=== PATIENT | male | born 1965 | race Caucasian/White ===

== ENCOUNTER 2020-12-15 10:20 | Inpatient (IN) ==
[2020-12-15 11:56] LABS: Red Cell Distribution Width 12.2 % (11.5-14.5)
[2020-12-15 11:57] LABS: Hematocrit 37.6 % (37.5-50.1); Hemoglobin 12.2 g/dL (12.9-16.9); Immature Platelets 3.6 % (1.1-6.1); Mean Corpuscular HGB Conc 32.4 g/dL (31.6-35.5); Mean Corpuscular Hemoglobin 30.3 pg (28.0-33.3); Mean Corpuscular Volume 93.5 fL (83.0-100.0); Mean Platelet Volume 9.9 fL (9.4-12.4); Platelet Count 105 K/mcL (140-400); Red Blood Count 4.02 M/mcL (4.19-5.50); White Blood Count 7.5 K/mcL (4.3-11.1)
[2020-12-15 12:08] LABS: Alanine Aminotransferase 11 Units/L (7-52); Albumin 3.9 g/dL (3.5-5.7); Albumin/Globulin Ratio 1.6 (1.1-2.2); Alkaline Phosphatase 97 Units/L (34-104); Aspartate Amino Transferase 20 Units/L (13-39); BUN/Creatinine Ratio 28 (6-26); Bilirubin,Total 1.4 mg/dL (0.3-1.0); Blood Urea Nitrogen 25 mg/dL (6-20); C-Reactive Protein < 5 mg/L (Less than 10); Calcium 8.8 mg/dL (8.6-10.3); Carbon Dioxide 22 mEq/L (23-29); Chloride 110 mEq/L (98-107); Globulin 2.5 g/dL (2.4-3.5); Glucose 145 mg/dL (70-105); Osmolality,Calculated 295 (280-300); Potassium 4.6 mEq/L (3.5-5.1); Sodium 139 mEq/L (136-145); Total Protein 6.4 g/dL (6.4-8.9); eGFR For African Americans > 60 (> 60); eGFR For Non-African Americans > 60 (> 60)
[2020-12-15 12:12] LABS: INR 1.1
[2020-12-15 12:15] LABS: Activated Partial Thrombo Time 29.6 Seconds (26.0-36.0)
[2020-12-15 13:13] LABS: Eosinophils # 0.7 K/mcL (0.0-0.6); Lymphocytes # 3.2 K/mcL (0.6-4.6); Monocytes # 0.1 K/mcL (0.0-1.3); Neutrophils # 3.5 K/mcL (1.6-8.9); Reactive Lymphocytes Present (Not Present)
[2020-12-15 13:14] LABS: Platelet Estimate Decreased (Normal)
[2020-12-15] MEDS ORDERED: *HR* Heparin 5,000 UNIT/ML VIAL IVP ONE (14:37)
[2020-12-15] MEDS ORDERED: *HR* Heparin 5,000 UNIT/ML VIAL IVP PRN ×2 (14:37)
[2020-12-15] MEDS ORDERED: Dextrose Gel 15 GM/37.5 ML TUBE PO PRN ×2 (14:42)
[2020-12-15] MEDS ORDERED: D5% in Water 1,000 ML IVC PRN (14:42)
[2020-12-15] MEDS ORDERED: *HR* Dextrose 50 % in Water (Vial) 50 ML VIAL IVP PRN (14:42)
[2020-12-15] MEDS ORDERED: Naloxone 0.4 MG/ML INJ IVP PRN (14:53)
[2020-12-15] MEDS ORDERED: Acetaminophen 325 MG TABLET PO PRN (14:53)
[2020-12-15 15:05] LABS: Mean Corpuscular HGB Conc 33.2 g/dL (31.6-35.5)
[2020-12-15 15:07] LABS: Hematocrit 37.9 % (37.5-50.1); Hemoglobin 12.6 g/dL (12.9-16.9); Immature Platelets 3.5 % (1.1-6.1); Mean Corpuscular Hemoglobin 30.6 pg (28.0-33.3); Mean Platelet Volume 9.7 fL (9.4-12.4); Red Blood Count 4.12 M/mcL (4.19-5.50); Red Cell Distribution Width 12.2 % (11.5-14.5); White Blood Count 7.6 K/mcL (4.3-11.1)
[2020-12-15] MEDS: Heparin 25,000UNIT/250ML 1/2NS 25,000 UNIT/250 ML IV.SOLN IVC SCH (15:23)
[2020-12-15 15:35] LABS: Troponin I < 0.03 ng/mL (< 0.04)
[2020-12-15] MEDS ORDERED: Isovue-370 500 ML BOTTLE IVP ONE (15:43)
[2020-12-15] MEDS: Insulin LISPRO 300 UNITS/3 ML VIAL SUBQ SCH ×2 (18:14→22:31)
[2020-12-15] MEDS: lamoTRIgine 100 MG TABLET PO SCH (18:15)
[2020-12-15 21:27] LABS: Hemoglobin 13.3 g/dL (12.9-16.9)
[2020-12-15 21:29] LABS: Hematocrit 38.9 % (37.5-50.1)
[2020-12-15] MEDS: Pregabalin 75 MG CAPSULE PO SCH (21:48)
[2020-12-15] MEDS: tiZANidine 4 MG TABLET PO SCH (21:48)
[2020-12-15] MEDS ORDERED: Ondansetron 4 MG/2 ML VIAL IVP PRN (22:55)
[2020-12-16] MEDS: *HR* OxyCODONE Immed Rel 5 MG TABLET PO PRN ×2 (01:02→08:13)
[2020-12-16] MEDS: cefTRIAXone 1,000 MG in 0.9 % Sodium Chloride Mini Bag 100 ML IVPB SCH ×3 (01:18→23:07)
[2020-12-16 03:18] LABS: Hematocrit 37.3 % (37.5-50.1); Hemoglobin 12.7 g/dL (12.9-16.9); Mean Corpuscular Hemoglobin 30.6 pg (28.0-33.3); Mean Corpuscular Volume 89.9 fL (83.0-100.0); Red Blood Count 4.15 M/mcL (4.19-5.50); Red Cell Distribution Width 12.3 % (11.5-14.5)
[2020-12-16 03:20] LABS: INR 1.1; Prothrombin Time 12.8 Seconds (9.4-12.1)
[2020-12-16 03:23] LABS: Activated Partial Thrombo Time 72.5 Seconds (26.0-36.0)
[2020-12-16 03:33] LABS: BUN/Creatinine Ratio 28 (6-26); Blood Urea Nitrogen 21 mg/dL (6-20); Calcium 9.2 mg/dL (8.6-10.3); Carbon Dioxide 21 mEq/L (23-29); Chloride 108 mEq/L (98-107); Chol/HDL Ratio 4.6 (0-4.9); Cholesterol 166 mg/dL (< 200); Glucose 157 mg/dL (70-105); HDL Cholesterol 36 mg/dL (40-59); LDL Cholesterol,Calculated 112 mg/dL (< 100); Magnesium 1.6 mg/dL (1.6-2.6); Osmolality,Calculated 298 (280-300); Potassium 3.9 mEq/L (3.5-5.1); Sodium 141 mEq/L (136-145); Triglycerides 92 mg/dL (< 150); eGFR For African Americans > 60 (> 60); eGFR For Non-African Americans > 60 (> 60)
[2020-12-16 03:35] LABS: % Iron Saturation 27 % (20-55); Iron 102 mcg/dL (65-175); Transferrin 267 mg/dL (203-362)
[2020-12-16 03:55] LABS: Ferritin 222 ng/mL (20-250)
[2020-12-16] MEDS: Pregabalin 75 MG CAPSULE PO SCH ×3 (08:13→23:03)
[2020-12-16] MEDS: tiZANidine 4 MG TABLET PO SCH ×3 (08:13→23:02)
[2020-12-16] MEDS: Insulin LISPRO 300 UNITS/3 ML VIAL SUBQ SCH ×4 (08:13→21:59)
[2020-12-16] MEDS: Heparin 25,000UNIT/250ML 1/2NS 25,000 UNIT/250 ML IV.SOLN IVC SCH (09:12)
[2020-12-16 10:16] LABS: Estimated Average Glucose 154 mg/dl
[2020-12-16] MEDS: lamoTRIgine 100 MG TABLET PO SCH (17:09)
[2020-12-17 01:13] LABS: Hematocrit 34.1 % (37.5-50.1); Hemoglobin 11.4 g/dL (12.9-16.9); Mean Corpuscular HGB Conc 33.4 g/dL (31.6-35.5); Mean Corpuscular Hemoglobin 31.3 pg (28.0-33.3); Mean Corpuscular Volume 93.7 fL (83.0-100.0); Mean Platelet Volume 10.1 fL (9.4-12.4); Platelet Count 100 K/mcL (140-400); Red Blood Count 3.64 M/mcL (4.19-5.50); Red Cell Distribution Width 12.5 % (11.5-14.5)
[2020-12-17 01:28] LABS: BUN/Creatinine Ratio 34 (6-26); Blood Urea Nitrogen 34 mg/dL (6-20); Calcium 8.4 mg/dL (8.6-10.3); Carbon Dioxide 25 mEq/L (23-29); Chloride 108 mEq/L (98-107); Glucose 131 mg/dL (70-105); Osmolality,Calculated 297 (280-300); Potassium 3.9 mEq/L (3.5-5.1); Sodium 139 mEq/L (136-145); eGFR For African Americans > 60 (> 60); eGFR For Non-African Americans > 60 (> 60)
[2020-12-17] MEDS: Heparin 25,000UNIT/250ML 1/2NS 25,000 UNIT/250 ML IV.SOLN IVC SCH ×2 (07:49→18:05)
[2020-12-17] MEDS: Insulin LISPRO 300 UNITS/3 ML VIAL SUBQ SCH ×4 (07:57→20:23)
[2020-12-17] MEDS: tiZANidine 4 MG TABLET PO SCH ×3 (09:04→20:21)
[2020-12-17] MEDS: Pregabalin 75 MG CAPSULE PO SCH ×3 (09:04→20:21)
[2020-12-17] MEDS: cefTRIAXone 1,000 MG in 0.9 % Sodium Chloride Mini Bag 100 ML IVPB SCH ×2 (12:46→23:32)
[2020-12-17] MEDS: lamoTRIgine 100 MG TABLET PO SCH (18:08)
[2020-12-17] MEDS: *HR* Enoxaparin 100 MG/ML SYRINGE SQ SCH (20:21)
[2020-12-18 02:45] LABS: Hemoglobin 12.1 g/dL (12.9-16.9); Red Cell Distribution Width 12.4 % (11.5-14.5)
[2020-12-18 02:47] LABS: Hematocrit 35.9 % (37.5-50.1); Immature Platelets 2.5 % (1.1-6.1); Mean Corpuscular HGB Conc 33.7 g/dL (31.6-35.5); Mean Corpuscular Hemoglobin 31.3 pg (28.0-33.3); Mean Corpuscular Volume 92.8 fL (83.0-100.0); Mean Platelet Volume 10.6 fL (9.4-12.4); Red Blood Count 3.87 M/mcL (4.19-5.50); White Blood Count 6.2 K/mcL (4.3-11.1)
[2020-12-18 03:04] LABS: BUN/Creatinine Ratio 38 (6-26); Blood Urea Nitrogen 29 mg/dL (6-20); Calcium 8.7 mg/dL (8.6-10.3); Carbon Dioxide 25 mEq/L (23-29); Chloride 110 mEq/L (98-107); Glucose 124 mg/dL (70-105); Osmolality,Calculated 301 (280-300); Potassium 3.9 mEq/L (3.5-5.1); Sodium 142 mEq/L (136-145); eGFR For African Americans > 60 (> 60); eGFR For Non-African Americans > 60 (> 60)
[2020-12-18] MEDS: *HR* Enoxaparin 100 MG/ML SYRINGE SQ SCH ×2 (05:57→16:43)
[2020-12-18] MEDS: Insulin LISPRO 300 UNITS/3 ML VIAL SUBQ SCH ×4 (08:20→21:17)
[2020-12-18] MEDS: Pregabalin 75 MG CAPSULE PO SCH ×3 (08:30→21:17)
[2020-12-18] MEDS: tiZANidine 4 MG TABLET PO SCH ×3 (08:31→21:17)
[2020-12-18] MEDS: *HR* OxyCODONE Immed Rel 5 MG TABLET PO PRN (08:38)
[2020-12-18] MEDS: cefTRIAXone 1,000 MG in 0.9 % Sodium Chloride Mini Bag 100 ML IVPB SCH (12:26)
[2020-12-18 14:25] LABS: Immature Reticulocyte % 18.2 % (11.0-38.0); Retculocyte # 0.14 M/mcL (0.05-0.10)
[2020-12-18 15:04] LABS: Folate 18.5 ng/mL (3.0-16.0)
[2020-12-18] MEDS: lamoTRIgine 100 MG TABLET PO SCH (16:43)
[2020-12-19] MEDS: cefTRIAXone 1,000 MG in 0.9 % Sodium Chloride Mini Bag 100 ML IVPB SCH (00:04)
[2020-12-19 01:33] LABS: Hematocrit 36.2 % (37.5-50.1); Hemoglobin 12.3 g/dL (12.9-16.9); Immature Platelets 3.7 % (1.1-6.1); Mean Corpuscular Hemoglobin 30.7 pg (28.0-33.3); Mean Corpuscular Volume 90.3 fL (83.0-100.0); Mean Platelet Volume 9.9 fL (9.4-12.4); Red Blood Count 4.01 M/mcL (4.19-5.50); Red Cell Distribution Width 12.4 % (11.5-14.5); White Blood Count 6.4 K/mcL (4.3-11.1)
[2020-12-19 01:51] LABS: BUN/Creatinine Ratio 35 (6-26); Blood Urea Nitrogen 27 mg/dL (6-20); Calcium 8.8 mg/dL (8.6-10.3); Carbon Dioxide 23 mEq/L (23-29); Chloride 108 mEq/L (98-107); Glucose 118 mg/dL (70-105); Osmolality,Calculated 294 (280-300); Potassium 3.7 mEq/L (3.5-5.1); Sodium 139 mEq/L (136-145); eGFR For African Americans > 60 (> 60); eGFR For Non-African Americans > 60 (> 60)
[2020-12-19] MEDS: *HR* Enoxaparin 100 MG/ML SYRINGE SQ SCH ×2 (05:44→17:07)
[2020-12-19] MEDS: tiZANidine 4 MG TABLET PO SCH ×2 (08:01→14:15)
[2020-12-19] MEDS: Pregabalin 75 MG CAPSULE PO SCH ×2 (08:01→14:15)
[2020-12-19] MEDS: Insulin LISPRO 300 UNITS/3 ML VIAL SUBQ SCH ×3 (08:03→16:20)
[2020-12-19 16:16] VITALS: BP 163/79
[2020-12-22 00:08] LABS: Alpha 2 Globulin (PEP) 0.81 g/dL (0.48-1.05); Beta Globulin (PEP) 0.92 g/dL (0.48-1.10)
[2020-12-22 06:44] LABS: IFE Reflexed NOT DONE
== END 2020-12-19 17:29 | disposition home or self-care (01) | DRG 300 ==
LOC: 3NENU 10:20 → EMEROOARM 10:20 → 3NENU 17:38 → 3ANU 12-18 16:52
PROVIDERS: ADMIT Student in an Organized Health Care Education/Training Program; ATTEND Student in an Organized Health Care Education/Training Program